=== PATIENT | female | born 1980 | race Caucasian/White ===

== ENCOUNTER 2017-09-29 20:26 | Emergency (ER) | payer OTHER ==
--- NOTE | 2017-09-29 23:02 | ED Physician Documentation ---
General Adult - HISTORIAN Historian: patient - HPI Stated Complaint: PELVIC PAIN Chief Complaint: General Adult Additional Information: pelvic pain since 1400 today Onset: hours (2) Timing: still present Severity: moderate Modifying Factors: none Context: no hx of injury Quality: pubic bone ache/pain Location: pubic ramus area Further Comments: no - ROS CONST: no problems EYES/ENT: none CVS/RESP: none GI/: other (pubic pain) MS/SKIN/LYMPH: none NEURO/PSYCH: denies: headache, fainting, dizziness, tingling, numbness, difficulty walking, difficulty with speech, anxiety, depression - PAST HX Past History: other (endometriosis) Other History: none Surgeries/Procedures: none Immunizations: referred to PCP Allergies/Adverse Reactions: Allergies Allergy/AdvReac Type Severity Reaction Status Date / Time Penicillins Allergy Verified 09/29/17 21:09 Tetanus Vaccines & Toxoid Allergy Verified 09/29/17 21:09 Home Medications: Ambulatory Orders Medication Instructions Recorded Divalproex Sodium [Depakote] 750 mg PO DAILY 09/29/17 Gabapentin [Neurontin] 300 mg PO TID 09/29/17 Venlafaxine HCl [Effexor] 37.5 mg PO QD 09/29/17 - SOCIAL HX Smoking History: cigarettes Alcohol Use: rarely Drug Use: none - FAMILY HX Family History: Yes - VITAL SIGNS Vital Signs: Vital Signs Temp Pulse Resp BP Pulse Ox 98.4 F 89 20 123/80 99 09/29/17 20:26 09/29/17 20:26 09/29/17 20:26 09/29/17 20:26 09/29/17 20:26 - REVIEWED ASSESSMENTS Nursing Assessment Reviewed: Yes Vitals Reviewed: Yes Progress - Results/Orders Results/Orders: ct abdomen/pelvis, ua ordered - Progress Progress: pt. given 60 mg Toradol im in er Critical Care Note - Critical Care Note Total Time (mins): 0 ED Results Lab/Radiology - Lab Results Lab Results: ua unremarkable - Radiology Radiology Impressions: ct abdomen and pelvis reveals herniated lumbar disc - Orders Orders: ED Orders Category Date Time Status CT ABD & PELVIS W/O CON Stat Exams 09/29/17 Taken URINALYSIS Routine Lab 09/29/17 21:18 Ordered General Adult Physical Exam - PHYSICAL EXAM GENERAL APPEARANCE: mild distress EENT: eye inspection normal, ENT inspection normal, pharynx normal, no signs of dehydration, CHELA, no nystagmus, TM's nml NECK: normal inspection, thyroid normal, supple RESPIRATORY: no resp distress, chest non-tender, breath sounds normal CVS: reg rate & rhythm, heart sounds normal, equal pulses, no murmur, no gallop , PMI nml, no JVD ABDOMEN: soft, no organomegaly, normal bowel sounds, no abdominal bruit, tenderness (suprapubic area) BACK: normal inspection, no CVA tenderness SKIN: warm/dry, normal color EXTREMITIES: non-tender, normal range of motion, no evidence of injury, no edema NEURO: oriented X3, CN's nml as tested, motor nml, sensation nml, mood/affect nml Discharge Clincal Impression: Pelvic pain, Lumbar herniated disc Referrals: Primary Doctor,No [Primary Care Provider] - 2 Days Comments: Pt. discharged in stable condition with [id number] for Skelaxin 1 pill 4x/ day. Condition: Stable Disposition: 01 HOME, SELF-CARE Decision to Admit: NO Decision Time: 23:02
[2017-09-29] MEDS: KETOROLAC TROMETHAMINE 60 MG/2 ML VIAL IM ONE (23:06)
[2017-09-30 00:04] VITALS: BP 120/80
--- NOTE | 2017-09-30 00:41 | Diagnostic Imaging Report ---
GHASSAN NGUYEN [facility] [address] [facility] [address] [place], [place]. 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 Physician: GHASSAN NGUYEN Computed tomography of the abdomen and pelvis without contrast History: Pelvic pain Findings: Transverse abdomen and pelvis sections are obtained without contrast. The lack of intravenous contrast limits the exam. The lung bases, liver, spleen, pancreas, adrenals, kidneys, great vessels, and mesenteric structures are grossly normal. The gallbladder is not identified. A small umbilical hernia contains omentum. Posterior central L4/L5 disc extrusion exhibits caudad migration and produces central canal stenosis. L5/S1 disc bulging is present. Bowel loops exhibit normal caliber and wall thickness. The colon is on the left and the small bowel on the right. Pelvic sections reveal moderate colonic stool and a normal appendix. The urinary bladder is unremarkable. Hysterectomy has been performed. Impression: 1. Congenital nonrotation of the bowel. 2. Normal appendix. 3. Posterior central L4/L5 disc extrusion with caudad migration and central canal stenosis. 4. Hysterectomy and cholecystectomy. 5. Small umbilical hernia. 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
[2017-09-30 06:51] LABS: APPEARANCE,URINE CLEAR (CLEAR); COLOR,URINE YELLOW (YELLOW); OCCULT BLOOD,URINE NEGATIVE (NEGATIVE); UROBILINOGEN URINE 0.2 Eu (0.2-1.0)
== END 2017-09-29 23:00 | disposition home or self-care (01) ==
LOC: ED 20:26
DX: R10.2 Pelvic and perineal pain (principal); M51.26 Other intervertebral disc displacement, lumbar region; N80.9 Endometriosis, unspecified
CPT/HCPCS: 74176; 81002; J1885; 96372; 99283

== ENCOUNTER 2017-10-17 08:51 | Emergency (ER) | payer OTHER ==
--- NOTE | 2017-10-17 09:18 | ED Physician Documentation ---
Lower Extremity Problem - HISTORIAN Historian: patient - HPI Chief Complaint: Lower Extremity Problem Location of Injury: L leg Onset: other (yesterday) Timing: worse Recent Injury: No Where: work Severity: moderate Quality: pain, swelling, tenderness Exacerbated By: walking Relieved By: rest Further Comments: yes (36 year old female patient presents with complaint of pain over achilles tendon. Patient denies any injury, states she worked 11 hours on her feet yesterday at [employer]. States pain began at work and has become progressively worse. 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.) - ROS CONST: no problems MS/SKIN/LYMPH: none CVS/RESP: none GI/: none EYES/ENT: none NERUO/PSYCH: denies: headache - PAST HX Past History: none PE Risk Factors: other (depression, seizures) Surgeries/Procedures: denies: none Allergies/Adverse Reactions: Allergies Allergy/AdvReac Type Severity Reaction Status Date / Time Penicillins Allergy Verified 10/17/17 09:17 Tetanus Vaccines & Toxoid Allergy Verified 10/17/17 09:17 Home Medications: Ambulatory Orders Medication Instructions Recorded Divalproex Sodium [Depakote] 750 mg PO DAILY 09/29/17 Gabapentin [Neurontin] 300 mg PO TID 09/29/17 Venlafaxine HCl [Effexor] 37.5 mg PO QD 09/29/17 Ketorolac Tromethamine [Toradol] 10 mg PO TID #15 tablet 10/17/17 - SOCIAL HX Smoking History: cigarettes - FAMILY HX Family History: denies: none - VITAL SIGNS Vital Signs: Vital Signs Temp Pulse Resp BP Pulse Ox 98.3 F 87 16 111/74 96 10/17/17 08:59 10/17/17 08:59 10/17/17 08:59 10/17/17 08:59 10/17/17 08:59 - REVIEWED ASSESSMENTS Nursing Assessment Reviewed: Yes Vitals Reviewed: Yes ED Results Lab/Radiology - Orders Orders: ED Orders Category Date Time Status Enmanuel Wrap Affected Extremity 1T Care 10/17/17 09:18 Active Ketorolac Tromethamine [Toradol] Med 10/17/17 09:18 Discontinued 60 mg IM NOW ONE Lower Extremity Problem - EXAM General Appearance: mild distress Hips: bilateral hip: non-tender, normal inspection, normal range of motion, no evidence of injury Legs: bilateral: non-tender, normal inspection, normal range of motion, no evidence of injury Knees: bilateral: non-tender, normal inspection, normal range of motion, no evidence of injury Ankle: left: pain (over ), soft tissue tenderness (proximal achilles tendon area ; tender to palpation), swelling, other (no tenderness over medial or lateral malleolus) Foot: bilateral foot: non-tender, normal inspection, normal range of motion, no evidence of injury Neuro/Tendon: normal sensation, normal motor functions, normal tendon functions , no evidence tendon injury EENT: eye inspection normal, CHELA RESPIRATORY: no resp distress CVS: reg rate & rhythm NEURO/PSYCH: oriented X3 SKIN: normal color, warm/dry, NR, INT, PAL, DR Discharge Clincal Impression: Tendonitis Achilles tendonitis Qualifiers: Laterality: left Qualified Code(s): M76.62 - Achilles tendinitis, left leg Prescriptions: Ketorolac Tromethamine [Toradol] 10 mg PO TID #15 tablet Additional Instructions: Ice Rest Elevation If you are unable to bear weight and continuing to have significant pain on day 3-4; see your PCP for re-evaluation and additional xrays. You may use Tylenol every 4hour as needed for pain. Limit your dose to less than 4 G per day. Do not take ibuprofen, aleve, naproxen or any other NSAID while you are on toradol. You may want to try massage, over the counter lidocaine patches, biofreeze, emma thurston or aspercream . Condition: Stable Disposition: 01 HOME, SELF-CARE Decision to Admit: NO Decision Time: 09:17
[2017-10-17] MEDS: KETOROLAC TROMETHAMINE 60 MG/2 ML VIAL IM ONE (09:24)
[2017-10-17 09:30] VITALS: BP 109/72
== END 2017-10-17 09:25 | disposition home or self-care (01) ==
LOC: ED 08:51
DX: M76.62 Achilles tendinitis, left leg (principal); F17.210 Nicotine dependence, cigarettes, uncomplicated
CPT/HCPCS: 96372; 99282; J1885

== ENCOUNTER 2017-10-20 16:57 | Emergency (ER) | payer OTHER ==
[2017-10-20 17:20] VITALS: BP 131/91
--- NOTE | 2017-10-20 18:02 | ED Physician Documentation ---
Ankle Injury - HISTORIAN Historian: patient, friend - HPI Stated Complaint: left ankle pain Chief Complaint: Ankle Injury Additional Information: palp and wt bearing pain area post to med mallelous-pt works at [employer] and on feet on cement all day. 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) Allergies/Adverse Reactions: Allergies Allergy/AdvReac Type Severity Reaction Status Date / Time Penicillins Allergy Verified 10/20/17 17:20 Tetanus Vaccines & Toxoid Allergy Verified 10/20/17 17:20 Home Medications: Ambulatory Orders Medication Instructions Recorded Divalproex Sodium [Depakote] 750 mg PO DAILY 09/29/17 Gabapentin [Neurontin] 300 mg PO TID 09/29/17 Venlafaxine HCl [Effexor] 37.5 mg PO QD 09/29/17 Estradiol [Estrace] 2 mg PO DAILY 10/20/17 - SOCIAL HX Smoking History: cigarettes Alcohol Use: none Drug Use: none - FAMILY HX Family History: no significant history - VITAL SIGNS Vital Signs: Vital Signs Temp Pulse Resp BP Pulse Ox 99.1 F 86 20 131/91 100 10/20/17 16:57 10/20/17 16:57 10/20/17 16:57 10/20/17 16:57 10/20/17 16:57 - REVIEWED ASSESSMENTS Nursing Assessment Reviewed: Yes Vitals Reviewed: Yes Ankle Injury Physical Exam - Physical Exam General Appearance: moderate distress Gait: limited by pain Neuro: motor nml. No: sensation nml, digital nerve deficit, decreased fine touch Vascular: No: no vascular compromise, pallor, cool skin, abnml cap refill, pulse deficit Tendons: tendon function nml, limited extension, limited flexion Leg/Knee/Thigh: uninjured above ankle, soft-tissue tenderness. No: swelling, bony tenderness, deformity, knee effusion Skin: intact, warm Head/ENT: nml inspection Neck/Back: nml inspection, non-tender Resp/CVS: chest non-tender, breath sounds nml, heart sounds nml, no resp. distress, lungs clear, reg. rate & rhythm Abdomen: non-tender Discharge Clincal Impression: tendonitis/fasciatitis, poss arteritis Referrals: Primary Doctor,No [Primary Care Provider] - 2 Days Comments: pt instructed must rest ankle and must see orthopedic surgeon for poss more significant condition Condition: Fair Disposition: 01 HOME, SELF-CARE Decision to Admit: NO Decision Time: 18:11
== END 2017-10-20 18:09 | disposition home or self-care (01) ==
LOC: ED 16:57
DX: M72.2 Plantar fascial fibromatosis (principal)
CPT/HCPCS: 99282

== ENCOUNTER 2017-11-28 19:16 | Emergency (ER) | payer SELFPAY ==
--- NOTE | 2017-11-28 19:32 | ED Physician Documentation ---
Sore Throat/Dental Pain - HISTORIAN Historian: patient - HPI Stated Complaint: tooth pain Chief Complaint: Dental Pain Onset: days ago (4) Context: Fractured Tooth Associated Symptoms: R ear pain, other (Diarrhea ). denies: fever, chills Worsened By: nothing Further Comments: yes (She states she has had an issue with this tooth for "a while" 4 days go started to notice increased pain. No drainge. No fever. She had diarrhea today - she states this is better now. She has ear pain. She has tried OTC for the diarrhea. She has not tried any OTC meds for pain. She has no dental insurance.) - ROS CONST: no problems CVS/RESP: denies: shortness of breath GI/: other (diarrhea this afternoon ). denies: nausea, vomiting MS/SKIN/LYMPH: denies: muscle aches NEURO/PSYCH: denies: headache, anxiety - PAST HX Past History: none Other History: other Immunizations: UTD Allergies/Adverse Reactions: Allergies Allergy/AdvReac Type Severity Reaction Status Date / Time Penicillins Allergy Verified 11/28/17 19:29 Tetanus Vaccines & Toxoid Allergy Verified 11/28/17 19:29 Home Medications: Ambulatory Orders Medication Instructions Recorded Divalproex Sodium [Depakote] 750 mg PO DAILY 09/29/17 Gabapentin [Neurontin] 300 mg PO TID 09/29/17 Venlafaxine HCl [Effexor] 37.5 mg PO QD 09/29/17 Estradiol [Estrace] 2 mg PO DAILY 10/20/17 - SOCIAL HX Smoking History: cigarettes Alcohol Use: none Drug Use: none - FAMILY HX Family History: No - VITAL SIGNS Vital Signs: Vital Signs Temp Pulse Resp BP Pulse Ox 99.4 F 83 16 122/95 100 11/28/17 19:17 11/28/17 19:17 11/28/17 19:17 11/28/17 19:17 11/28/17 19:17 - REVIEWED ASSESSMENTS Nursing Assessment Reviewed: Yes Vitals Reviewed: Yes Dental Pain Physical Exam - EXAM General Appearance: no acute distress, alert Head/Neck: head nml inspection, thyroid nml. No: mandibular swelling (R), mandibular swelling (L), maxillary swelling (R), maxillary swelling (L), cervical lymphadenopathy Eyes: eyes nml inspection Mouth/Throat: lips nml, gums nml, pharynx nml, no air way problems. No: gum swelling around teeth, pharyngeal erythema Ear/Nose: TM erythema (right ear, dull and buldging ear TM ) Respiratory: no resp. distress, breath sounds nml, respiratory distress CVS: reg. rate & rhythm, heart sounds nml. No: murmur Abdomen: soft, normal bowel sounds, no distension, non-tender Extremities: non-tender, nml ROM Skin: warm/dry, normal color Neuro/Psych: No: depression Discharge Clincal Impression: Otitis Qualifiers: Laterality: right Qualified Code(s): H66.91 - Otitis media, unspecified, right ear Referrals: Primary Doctor,No [Primary Care Provider] - 2 Days Comments: 1. Azithromycin (zpack) as directed 2. Medrol dose pack as directed 3. Tylenol /Ibuprofen as needed for pain 4. Warm pack 5. See PCP if no improvement in 2-4 days 6. Return to ER for increasing pain, fever or other concerning symptoms Condition: Stable Disposition: 01 HOME, SELF-CARE Decision to Admit: NO Date of Decison to Admit: 11/28/17 Decision Time: 19:38
[2017-11-28 19:55] VITALS: BP 124/88
== END 2017-11-28 19:49 | disposition home or self-care (01) ==
LOC: ED 19:16
DX: H66.91 Otitis media, unspecified, right ear (principal)
CPT/HCPCS: 99282

== ENCOUNTER 2017-12-23 15:17 | Emergency (ER) | payer SELFPAY ==
--- NOTE | 2017-12-23 15:31 | ED Physician Documentation ---
General Adult - VITAL SIGNS Vital Signs: Vital Signs Temp Pulse Resp BP Pulse Ox 99.0 F 87 14 130/87 96 12/23/17 15:21 12/23/17 15:21 12/23/17 15:21 12/23/17 15:21 12/23/17 15:21 <Robyn Agee - Last Filed: 12/23/17 23:15> - HISTORIAN Historian: patient - HPI Stated Complaint: depression Chief Complaint: General Adult Onset: days ago Timing: still present Severity: moderate Further Comments: yes (Pt is a 37 yo female who states that she is suicidal. She has a plan, which is to cut her wrists, which "is the fastest way." Pt has hx bipolar d/o, anxiety and personality d/o with cutting behavior in the past. Pt has 2 previous suicide attempts in her 20's by deliberate seroquel overdose and by deliberate heroine overdose. Pt went through rehab for drug abuse and states that she has been clean since March 2016. Pt had been on Depakote for some time, and this apparently worked well to control her mood, but she stopped it due to weight gain. Pt was then on Lamictal for some time, but this appeared to stop working. Pt started on Trileptal about 2 weeks ago with a new provider, but things have gotten worse. Pt thinks that it may be the medication change that has brought about her sx, though she does have stress at work. 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 She is given a hard time if she doesn't want to come in. Recently she called in sick, after not have called in during the 4 months of her employment, and was made to feel bad about not coming in for a legitimate reason. Pt often feels manipulated into working. Pt also has had an R earache and slight sore throat. She says that she has a bad tooth on the lower right.) - ROS CONST: no problems EYES/ENT: none CVS/RESP: none GI/: none MS/SKIN/LYMPH: none NEURO/PSYCH: depression (with suicidality) - PAST HX Past History: other (bipolar d/o with suicidality; anxiety; drug abuse, heroine , with detox approx 2 yrs ago.) - SOCIAL HX Smoking History: other (unk) Drug Use: other (hx heroine abuse) - FAMILY HX Family History: No (unk) - VITAL SIGNS Vital Signs: Vital Signs Temp Pulse Resp BP Pulse Ox 124/88 11/28/17 19:53 - REVIEWED ASSESSMENTS Nursing Assessment Reviewed: Yes Vitals Reviewed: Yes <Reji Barillas - Last Filed: 12/24/17 16:49> - PAST HX Allergies/Adverse Reactions: Allergies Allergy/AdvReac Type Severity Reaction Status Date / Time Penicillins Allergy Verified 12/23/17 23:53 Sulfa (Sulfonamide Allergy Verified 12/23/17 23:53 Antibiotics) Tetanus Vaccines and Toxoid Allergy Verified 12/23/17 23:53 [Tetanus Vaccines & Toxoid] Home Medications: Ambulatory Orders Medication Instructions Recorded Gabapentin [Neurontin] 300 mg PO TID 09/29/17 Venlafaxine HCl [Effexor] 37.5 mg PO QD 09/29/17 Estradiol [Estrace] 2 mg PO DAILY 10/20/17 Oxcarbazepine [Trileptal] 300 mg PO BID 12/23/17 Progress - Progress Progress: 1914: pt aware of shift change. She has no complaints. She is aware there is no accepting facility at this time. we will continue to work on placement> DG 2014: Sleeping quietly in bed. DG 2099: In discussion with the pt on symptoms she notes she was recently released from [facility] and she was transferred to a recovery house for approx the last 4 months. She relays several stressors : difficulty getting along with others at the recovery house, a demanding job (feeling unappreciated) with all of this she has had increasing suicidal thoughts with the plan to cut her wrists and she also reports she is hearing voices about "she is worthless and it does not matter any more" . She has had other suicidal attempts in the past. She is wanting inpatient care for prevention of suicide. 2229: working with social human services assistants on placement DG 2249: Accepting Dr Beach accepting at [facility]. DG <Robyn Agee - Last Filed: 12/23/17 23:15> - Progress Progress: Azithromycin 500 mg po in ER for c/o sore throat/ear pain. Attempts at psych placement unsuccessful. Unable to transfer to . Hosp. Pt will remain at [facility] until placement accomplished. 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 Care transferred to [facility] at 1900. <Reji Barillas - Last Filed: 12/24/17 16:49> ED Results Lab/Radiology - Lab Results Lab Results: Lab Results 12/23/17 12/23/17 15:50 15:50 WBC 5.20 K/ul K/ul (4.00-12.00) RBC 4.24 M/ul M/ul (3.90-5.20) Hgb 13.6 g/dL g/dL (12.0-16.0) Hct 41.1 % % (34.5-46.5) MCV 97.1 fl fl (80.0-100.0) MCH 32.1 pg pg (28.0-34.0) MCHC 33.1 g/dL g/dL (30.0-36.0) RDW 12.4 % % (11.3-14.3) Plt Count 250 K/mm3 K/mm3 (130-400) Neut % (Auto) 57.1 % % (39.0-79.0) Lymph % (Auto) 35.3 % % (16.0-50.0) Crosby % (Auto) 4.4 % % (0.0-11.0) Eos % (Auto) 1.9 % % (0.0-6.8) Baso % (Auto) 0.4 (0.0-1.5) Neut # (Auto) 3.0 # k/uL # k/uL (1.4-7.7) Lymph # (Auto) 1.8 # k/uL # k/uL (0.6-4.0) Crosby # (Auto) 0.2 # k/uL # k/uL (0.0-0.9) Eos # (Auto) 0.1 # k/uL # k/uL (0.0-0.6) Baso # (Auto) 0.0 # k/uL # k/uL (0.0-0.5) Reactive Lymphs % 0.9 % % (0.0-5.0) Reactive Lymphs # 0.0 # k/uL # k/uL (0.0-0.8) Sodium 142 mmol/L mmol/L (136-145) Potassium 3.6 mmol/L mmol/L (3.5-5.1) Chloride 106 mmol/L mmol/L (98-107) Carbon Dioxide 23 mmol/L mmol/L (22-30) BUN 11 mg/dL mg/dL (7-17) Creatinine 0.70 mg/dL mg/dL (0.52-1.04) Estimated Creat Clear 137 Est GFR ( Amer) > 60 (60 - ) Est GFR (Non-Af Amer) > 60 (60 - ) Glucose 92 mg/dL mg/dL (74-106) Calcium 9.3 mg/dL mg/dL (8.4-10.2) Total Bilirubin 0.6 mg/dL mg/dL (0.2-1.3) AST 33 U/L U/L (15-46) ALT 36 U/L U/L (13-69) Alkaline Phosphatase 69 U/L U/L (38-126) Total Protein 7.9 g/dL g/dL (6.3-8.2) Albumin 4.7 g/dL g/dL (3.5-5.0) - Orders Orders: ED Orders Category Date Time Status CBC/PLATELET/DIFF Routine Lab 12/23/17 15:50 Completed CMP Routine Lab 12/23/17 15:50 Completed UDS [DRUG SCREEN URINE MEDICAL ONLY] Routine Lab 12/23/17 Ordered URINALYSIS Routine Lab 12/23/17 Ordered URINE HCG Stat Lab 12/23/17 15:56 Ordered Azithromycin [Zithromax] Med 12/23/17 15:42 Discontinued 500 mg PO NOW ONE LORazepam [Ativan] Med 12/23/17 16:28 Discontinued 1 mg PO NOW ONE <Robyn Agee - Last Filed: 12/23/17 23:15> General Adult Physical Exam - PHYSICAL EXAM GENERAL APPEARANCE: no distress EENT: eye inspection normal NECK: normal inspection RESPIRATORY: no resp distress, chest non-tender, breath sounds normal CVS: reg rate & rhythm ABDOMEN: soft BACK: normal inspection NEURO: oriented X3 <Robyn Agee - Last Filed: 12/23/17 23:15> - PHYSICAL EXAM GENERAL APPEARANCE: depression EENT: eye inspection normal, CHELA, TM's nml NECK: normal inspection, supple RESPIRATORY: no resp distress, chest non-tender, breath sounds normal CVS: reg rate & rhythm, heart sounds normal ABDOMEN: soft, no organomegaly, normal bowel sounds BACK: normal inspection, no CVA tenderness SKIN: warm/dry, normal color EXTREMITIES: non-tender, normal range of motion, no evidence of injury NEURO: oriented X3, motor nml, sensation nml, depressed mood/affect <Reji Barillas - Last Filed: 12/24/17 16:49> Discharge <Robyn Agee - Last Filed: 12/23/17 23:15> Decision to Admit: NO Decision Time: 23:10 <Reji Barillas - Last Filed: 12/24/17 16:49> Clincal Impression: depression with suicidality Referrals: Primary Doctor,No [Primary Care Provider] - Condition: Stable Disposition: 65 XFER TO PSYCH HOSP/UNIT
[2017-12-23] MEDS ORDERED: AZITHROMYCIN 250 MG TABLET PO ONE (15:42)
[2017-12-23 16:02] LABS: BASOPHILS % 0.4 (0.0-1.5); EOSINOPHILS % 1.9 % (0.0-6.8); MEAN CORPUSCULAR HEMOGLOBIN 32.1 pg (28.0-34.0); MEAN CORPUSCULAR VOLUME 97.1 fl (80.0-100.0); MONOCYTES % 4.4 % (0.0-11.0)
[2017-12-23 16:12] LABS: eGFR (African) > 60; eGFR (Non-African) > 60
[2017-12-23] MEDS ORDERED: LORazepam 1 MG TABLET PO ONE ×2 (16:28→22:52)
[2017-12-23] MEDS ORDERED: NICOTINE 21mg 1 EACH PATCH.TD24 TD ONE (20:34)
[2017-12-23] MEDS ORDERED: NICOTINE 21mg 1 EACH PATCH.TD24 TD SCH (21:00)
[2017-12-23 23:51] VITALS: BP 99/62
[2017-12-24 06:59] LABS: APPEARANCE,URINE CLEAR (CLEAR); COLOR,URINE YELLOW (YELLOW); OCCULT BLOOD,URINE NEGATIVE (NEGATIVE); PH URINE 5.5 (5.0 - 8.0); UROBILINOGEN URINE 0.2 Eu (0.2-1.0)
[2017-12-24 07:01] LABS: CANNABINOIDS NEGATIVE ng/mL (< 50); METHYLENEDIOXYMETHAMPHETAMINE NEGATIVE ng/mL (<500)
== END 2017-12-23 23:40 ==
LOC: ED 15:17
DX: F33.9 Major depressive disorder, recurrent, unspecified (principal); R45.851 Suicidal ideations
CPT/HCPCS: 80053; 80377; 81002; 81025; 85025; 99284; G0481

== ENCOUNTER 2018-01-19 07:33 | Outpatient (CLI) | payer OTHER ==
[2018-01-19 08:23] LABS: BASOPHILS % 0.3 (0.0-1.5); EOSINOPHILS % 2.6 % (0.0-6.8); MEAN CORPUSCULAR HEMOGLOBIN 31.8 pg (28.0-34.0); MONOCYTES % 4.5 % (0.0-11.0); NEUTROPHILS # 3.8 # k/uL (1.4-7.7)
[2018-01-19 09:08] LABS: eGFR (African) > 60; eGFR (Non-African) > 60
== END 2018-01-19 07:35 ==
LOC: LAB 07:33
PROVIDERS: ATTEND Physician Assistant
DX: Z00.00 Encounter for general adult medical examination without abnormal findings (principal); Z83.42 Family history of familial hypercholesterolemia
CPT/HCPCS: 36415; 80053; 80061; 84443; 85025

== ENCOUNTER 2018-02-01 19:03 | Emergency (ER) | payer OTHER ==
--- NOTE | 2018-02-01 19:08 | ED Physician Documentation ---
Sore Throat/Dental Pain - HISTORIAN Historian: patient - HPI Stated Complaint: dental pain x 2 weeks Chief Complaint: Dental Pain Onset: other (14 days) Context: Fractured Tooth Associated Symptoms: moderate. denies: fever, chills Worsened By: heat, cold Further Comments: yes (She states she has had issues with her teeth "for a long time" but recently the tooth on the upper left has had increasing pain. She has contacted a dentist and her appt is next Tuesday. The tooth is broken off and the pain is increasing . She is crying in the room grabbing her mouth. She has not tried any OTC Meds (that doesnt work) she has tried some [place]. She states that helps minimally. No fever. No draingae.) - ROS CONST: no problems - PAST HX Past History: other (dental cavities ) Immunizations: UTD Allergies/Adverse Reactions: Allergies Allergy/AdvReac Type Severity Reaction Status Date / Time Penicillins Allergy Verified 02/01/18 19:20 Sulfa (Sulfonamide Allergy Verified 02/01/18 19:20 Antibiotics) Tetanus Vaccines and Toxoid Allergy Verified 02/01/18 19:20 [Tetanus Vaccines & Toxoid] Home Medications: Ambulatory Orders Medication Instructions Recorded Gabapentin 600 mg PO 5XDAY u2 01/18/18 Oxcarbazepine [Trileptal] 150 mg PO TID u2 01/18/18 Venlafaxine HCl [Effexor Xr] 75 mg PO DAILY av 01/18/18 - SOCIAL HX Smoking History: cigarettes Alcohol Use: none Drug Use: none - FAMILY HX Family History: No - VITAL SIGNS Vital Signs: Vital Signs Temp Pulse Resp BP Pulse Ox 99/62 12/23/17 23:13 - REVIEWED ASSESSMENTS Nursing Assessment Reviewed: Yes Vitals Reviewed: Yes Dental Pain Physical Exam - EXAM General Appearance: no acute distress, alert Head/Neck: head nml inspection. No: facial erythema Eyes: eyes nml inspection Mouth/Throat: lips nml, pharynx nml, no drooling, no air way problems, widespread dental decay, other (many broken and missing teeth ) Ear/Nose: nml inspection Respiratory: no resp. distress, breath sounds nml CVS: reg. rate & rhythm, heart sounds nml Abdomen: soft, normal bowel sounds Extremities: non-tender Skin: warm/dry, normal color Neuro/Psych: No: weakness, numbness, anxiety, depression Discharge Clincal Impression: Pain, dental Referrals: Benedict Price PA [Primary Care Provider] - 2 Days Additional Instructions: 1. Tramodol 50 mg Take 1 by mouth every 12 hours as needed for pain 2. Tylenol or Ibuprofen as needed for pain 3. Warm water gargles 4. Follow up with PCP in 2-4 days 5. Keep scheduled appt with dental office 6. Return to ER for any concerns Condition: Stable Disposition: 01 HOME, SELF-CARE Decision to Admit: NO Date of Decison to Admit: 02/01/18 Decision Time: 19:44
[2018-02-01 19:20] VITALS: BP 165/100
[2018-02-01] MEDS: KETOROLAC TROMETHAMINE 60 MG/2 ML VIAL IM ONE (19:25)
== END 2018-02-01 19:49 | disposition home or self-care (01) ==
LOC: ED 19:03
DX: K08.89 Other specified disorders of teeth and supporting structures (principal)
CPT/HCPCS: 96372; 99284; J1885

== ENCOUNTER 2018-03-18 13:31 | Emergency (ER) | payer OTHER ==
--- NOTE | 2018-03-18 15:10 | ED Physician Documentation ---
General Adult - HISTORIAN Historian: patient - HPI Stated Complaint: Dental Pain Chief Complaint: General Adult Onset: days ago Timing: still present Severity: moderate Further Comments: yes (Pt is a 37 yo female with dental pain. Pt had a tooth extracted 5 days ago and developed pain at the site yesterday, on the upper L.) - ROS CONST: no problems EYES/ENT: other (dental pain) CVS/RESP: none GI/: none MS/SKIN/LYMPH: none - PAST HX Past History: other (bipolar d/o) Surgeries/Procedures: hysterectomy Allergies/Adverse Reactions: Allergies Allergy/AdvReac Type Severity Reaction Status Date / Time Penicillins Allergy Verified 02/01/18 19:20 Sulfa (Sulfonamide Allergy Verified 02/01/18 19:20 Antibiotics) Tetanus Vaccines and Toxoid Allergy Verified 02/01/18 19:20 [Tetanus Vaccines & Toxoid] Home Medications: Ambulatory Orders Medication Instructions Recorded Gabapentin 600 mg PO 5XDAY u2 01/18/18 Oxcarbazepine [Trileptal] 150 mg PO TID u2 01/18/18 Venlafaxine HCl [Effexor Xr] 75 mg PO DAILY av 01/18/18 - SOCIAL HX Smoking History: cigarettes - FAMILY HX Family History: No - VITAL SIGNS Vital Signs: Vital Signs Temp Pulse Resp BP Pulse Ox 80 18 134/96 100 03/18/18 13:31 03/18/18 13:31 03/18/18 13:31 03/18/18 13:31 - REVIEWED ASSESSMENTS Nursing Assessment Reviewed: Yes Vitals Reviewed: Yes Progress - Progress Progress: Rx Clindamycin 300 mg. Take one every 8 hours for 10 days. Rx [place] (5/325). Take one or two every 4 to 6 hours as needed for moderate to severe pain. General Adult Physical Exam - PHYSICAL EXAM GENERAL APPEARANCE: moderate distress EENT: pharynx normal, other (dental tenderness upper L jaw, s/p extraction) RESPIRATORY: no resp distress, chest non-tender CVS: reg rate & rhythm, heart sounds normal BACK: normal inspection SKIN: warm/dry, normal color EXTREMITIES: non-tender, normal range of motion, no evidence of injury NEURO: oriented X3, motor nml, sensation nml Discharge Clincal Impression: Pain, dental Referrals: Christine Ramirez MD [Primary Care Provider] - 2 Days Condition: Good Disposition: 01 HOME, SELF-CARE Decision to Admit: NO Decision Time: 15:10
[2018-03-18 15:18] VITALS: BP 128/84
== END 2018-03-18 15:16 | disposition home or self-care (01) ==
LOC: ED 13:31
DX: K08.89 Other specified disorders of teeth and supporting structures (principal)
CPT/HCPCS: 99282

== ENCOUNTER 2018-04-27 17:32 | Emergency (ER) | payer SELFPAY ==
--- NOTE | 2018-04-27 17:45 | ED Physician Documentation ---
Suicidal Attempt - HISTORIAN Historian: patient - HPI Stated Complaint: suicidal Chief Complaint: Psychological Disorder Onset: other (increased over last 3 weeks ) Duration: constant Intent: suicide (via OD on meds or walking in front of a car) Severity: moderate Situational Problems: Yes (she has had depresson but recent divorce ) Further Comments: yes (She reports she has had depression and anxiety for years. She is on meds currently and she states in the beginning this regimen worked for a while although she recently got a divorce 2 months ago (she does not feel this has increased her symtpoms due to the marrige has "been over for years")She states over the last 3 weeks it has increased and she has tried to get into [facility] but they told her 2-3 months. She called the crisis line today and they directed her to the ER . She reports she would OD on one of her meds or walk out in front of a car and she does want to do that today.) - Associated Symptoms Symptoms: depressed Suicidal: specific plan Ingestion: suicide attempt (in the past) Mechanism: other (alcohol ingestion) - ROS CONST: none - PAST HX Psychiatric problems: depression, prior suicide attempt DVT/PE Risk Factors: none Immunizations: UTD - Social HX Smoking History: cigarettes Marital Status: other (recently ) Drug Use: none - Family HX Family HX: denies: mental illness - REVIEWED ASSESSMENTS Nursing Assessment Reviewed: Yes Vitals Reviewed: Yes - PAST HX Allergies/Adverse Reactions: Allergies Allergy/AdvReac Type Severity Reaction Status Date / Time Penicillins Allergy Verified 04/27/18 17:50 Sulfa (Sulfonamide Allergy Verified 04/27/18 17:50 Antibiotics) Tetanus Vaccines and Toxoid Allergy Verified 04/27/18 17:50 [Tetanus Vaccines & Toxoid] Home Medications: Ambulatory Orders Medication Instructions Recorded Gabapentin 600 mg PO 5XDAY u2 01/18/18 Olanzapine [Zyprexa] 1 tab PO DAILY 04/27/18 Venlafaxine HCl [Effexor Xr] 1 tab PO DAILY 04/27/18 Oxcarbazepine [Trileptal] 300 mg PO BID 04/28/18 - VITAL SIGNS Vital Signs: Vital Signs Temp Pulse Resp BP Pulse Ox 98.3 F 60 14 112/74 99 04/28/18 13:12 04/29/18 19:35 04/29/18 19:35 04/29/18 19:35 04/28/18 13:12 Progress - Progress Progress: 1900: attempting to place in facilities . PT is resting quietly DG 2330: sleeping - still awaiting placement. DG 0130: sleeping - still awaiting placement DG 0530: resting quietly - still awaiting placement. Will await social insurance analyst to help with this placement DG 2100, she has requested and received ativan twice so far this day. Drining coffee. Accepted at facility in [place] with the stipulation that she have a ride home on discharge; she does not. peaceful and drinking coffee most of the day. 0720: sleeping quietly in room. DG 0820: Does not want her breakfast. No complaints DG 1100: She is up in room doing ADL's. NO complaints. DG 1345: She is stating she is no longer concerned with harming herself and would like to go home - she states she asked yesterday but is certain today is feeling better. She does feel depressed although she has an appt with a counselor Tuesday . She lives less than 2 blocks from hospital and she will return DG (ELOY COLE) 1900: attempting to place in facilities . PT is resting quietly DG 2330: sleeping - still awaiting placement. DG 0130: sleeping - still awaiting placement DG 0530: resting quietly - still awaiting placement. Will await social insurance analyst to help with this placement DG 2100, she has requested and received ativan twice so far this day. Drining coffee. Accepted at facility in [place] with the stipulation that she have a ride home on discharge; she does not. peaceful and drinking coffee most of the day. 0720: sleeping quietly in room. DG 0820: Does not want her breakfast. No complaints DG 1100: She is up in room doing ADL's. NO complaints. DG 1345: She is stating she is no longer concerned with harming herself and would like to go home - she states she asked yesterday but is certain today is feeling better. She does feel depressed although she has an appt with a counselor Tuesday . She lives less than 2 blocks from hospital and she will return DG (Robyn Agee) - Lab Results Lab Results: Lab Results 04/27/18 04/27/18 04/27/18 18:35 18:35 18:20 WBC RBC Hgb Hct MCV MCH MCHC RDW Plt Count Neut % (Auto) Lymph % (Auto) [place] % (Auto) Eos % (Auto) Baso % (Auto) Neut # (Auto) Lymph # (Auto) [place] # (Auto) Eos # (Auto) Baso # (Auto) Reactive Lymphs % Reactive Lymphs # Sodium Potassium Chloride Carbon Dioxide BUN Creatinine Estimated Creat Clear Est GFR ( Amer) Est GFR (Non-Af Amer) Glucose Calcium Total Bilirubin AST ALT Alkaline Phosphatase Total Protein Albumin TSH 1.550 uIU/mL uIU/mL (0.270-4.200) Free T4 Index 0.75 ng/dL L ng/dL (0.93-1.70) Free T3 Index 2.55 pg/mL pg/mL (2.00-4.40) Serum HCG, Qual Urine Color Yellow (YELLOW) Urine Appearance Clear (CLEAR) Urine pH 5.5 (5.0 - 8.0) Ur Specific [place] 1.025 (1.010-1.030) Urine Protein Negative mg/dL mg/dL (NEGATIVE) Urine Ketones Negative mg/dL mg/dL (NEGATIVE) Urine Occult Blood Negative (NEGATIVE) Urine Nitrite Negative (NEGATIVE) Urine Bilirubin Negative (NEGATIVE) Urine Urobilinogen 0.2 Eu Eu (0.2-1.0) Ur Leukocyte Esterase Negative (NEGATIVE) Urine Glucose Negative mg/dL mg/dL (NEGATIVE) Opiates Screen Negative ng/mL ng/mL (<300) Oxycodone Screen Negative ng/mL ng/mL (<100) Methadone Screen Negative ng/mL ng/mL (<200) Ur Barbiturates Screen Negative ng.mL ng.mL (<200) Tricyclic Antidepress Negative ng/mL ng/mL (<300) Phencyclidine Screen Negative ng/mL ng/mL (< 25) Amphetamines Screen Negative ng/mL ng/mL (<500) U Methamphetamines Scrn Negative ng/mL ng/mL (<500) MDMA Negative ng/mL ng/mL (<500) Benzodiazepines Screen Negative ng/mL ng/mL (<150) Urine Cocaine Screen Negative ng/mL ng/mL (<150) U Cannabinoids Screen Negative ng/mL ng/mL (< 50) Ethyl Alcohol 04/27/18 04/27/18 04/27/18 18:20 18:20 18:20 WBC 5.30 K/ul K/ul (4.00-12.00) RBC 4.38 M/ul M/ul (3.90-5.20) Hgb 13.6 g/dL g/dL (12.0-16.0) Hct 40.5 % % (34.5-46.5) MCV 92.5 fl fl (80.0-100.0) MCH 31.1 pg pg (28.0-34.0) MCHC 33.7 g/dL g/dL (30.0-36.0) RDW 12.7 % % (11.3-14.3) Plt Count 251 K/mm3 K/mm3 (130-400) Neut % (Auto) 51.7 % % (39.0-79.0) Lymph % (Auto) 41.1 % % (16.0-50.0) [place] % (Auto) 3.4 % % (0.0-11.0) Eos % (Auto) 1.7 % % (0.0-6.8) Baso % (Auto) 0.6 (0.0-1.5) Neut # (Auto) 2.7 # k/uL # k/uL (1.4-7.7) Lymph # (Auto) 2.2 # k/uL # k/uL (0.6-4.0) [place] # (Auto) 0.2 # k/uL # k/uL (0.0-0.9) Eos # (Auto) 0.1 # k/uL # k/uL (0.0-0.6) Baso # (Auto) 0.0 # k/uL # k/uL (0.0-0.5) Reactive Lymphs % 1.4 % % (0.0-5.0) Reactive Lymphs # 0.1 # k/uL # k/uL (0.0-0.8) Sodium 137 mmol/L mmol/L (136-145) Potassium 3.4 mmol/L L mmol/L (3.5-5.1) Chloride 101 mmol/L mmol/L (98-107) Carbon Dioxide 24 mmol/L mmol/L (22-30) BUN 10 mg/dL mg/dL (7-17) Creatinine 0.70 mg/dL mg/dL (0.52-1.04) Estimated Creat Clear 142 Est GFR ( Amer) > 60 (60 - ) Est GFR (Non-Af Amer) > 60 (60 - ) Glucose 111 mg/dL H mg/dL (74-106) Calcium 8.8 mg/dL mg/dL (8.4-10.2) Total Bilirubin < 0.1 mg/dL L mg/dL (0.2-1.3) AST 31 U/L U/L (15-46) ALT 51 U/L U/L (13-69) Alkaline Phosphatase 72 U/L U/L (38-126) Total Protein 7.5 g/dL g/dL (6.3-8.2) Albumin 4.3 g/dL g/dL (3.5-5.0) TSH Free T4 Index Free T3 Index Serum HCG, Qual Negative (NEGATIVE) Urine Color Urine Appearance Urine pH Ur Specific [place] Urine Protein Urine Ketones Urine Occult Blood Urine Nitrite Urine Bilirubin Urine Urobilinogen Ur Leukocyte Esterase Urine Glucose Opiates Screen Oxycodone Screen Methadone Screen Ur Barbiturates Screen Tricyclic Antidepress Phencyclidine Screen Amphetamines Screen U Methamphetamines Scrn MDMA Benzodiazepines Screen Urine Cocaine Screen U Cannabinoids Screen Ethyl Alcohol < 10.0 mg/dL mg/dL (0.0-10.0) - Orders Orders: ED Orders Category Date Time Status Place IV Lock 1T Care 04/27/18 17:47 Active Slabber Consult [CONS] Routine Cons 04/28/18 Ordered ALCOHOL MEDICAL USE ONLY Routine Lab 04/27/18 18:20 Completed CBC/PLATELET/DIFF Routine Lab 04/27/18 18:20 Completed CMP Routine Lab 04/27/18 18:20 Completed DRUG SCREEN URINE MEDICAL ONLY Routine Lab 04/27/18 18:35 Completed SERUM HCG Routine Lab 04/27/18 18:20 Completed THYROID PANEL (TSH, FT3, FT4) Stat Lab 04/27/18 18:20 Completed UA MACRO DIP ONLY Routine Lab 04/27/18 18:35 Completed Gabapentin [Neurontin] Med 04/29/18 09:57 Discontinued 600 mg .ROUTE .STK-MED ONE Gabapentin [Neurontin] Med 04/29/18 10:00 Discontinued 600 mg PO D Gabapentin [Neurontin] Med 04/28/18 18:26 Discontinued 600 mg PO NOW ONE Gabapentin [Neurontin] Med 04/29/18 14:00 Discontinued 600 mg PO NOW ONE LORazepam [Ativan] Med 04/27/18 17:55 Discontinued 1 mg PO NOW ONE LORazepam [Ativan] Med 04/28/18 10:42 Discontinued 1 mg PO NOW ONE LORazepam [Ativan] Med 04/28/18 13:09 Discontinued 1 mg PO NOW ONE LORazepam [Ativan] Med 04/28/18 22:03 Discontinued 1 mg PO NOW ONE LORazepam [Ativan] Med 04/29/18 12:49 Discontinued 1 mg PO NOW ONE OLANZapine [Zyprexa] Med 04/28/18 18:26 Discontinued 5 mg PO HS ONE Oxcarbazepine Med 04/29/18 10:14 Discontinued 300 mg PO NOW ONE Oxcarbazepine Med 04/28/18 18:26 Discontinued 300 mg PO TID ONE [facility] 04/28/18 19:08 Discontinued 1 each [facility] .STK-MED ONE [facility] 04/29/18 10:13 Discontinued 1 each MC .STK-MED ONE Venlafaxine HCl [Effexor Xr] Med 04/28/18 19:22 Discontinued 150 mg PO DAILY ONE Venlafaxine HCl [Effexor] Med 04/28/18 18:26 Discontinued 150 mg PO DAILY ONE Venlafaxine HCl [Effexor] Med 04/29/18 09:38 Discontinued 150 mg PO DAILY ONE EKG WITH COMPARISON Stat Ther 04/27/18 Completed Suicide Physical Exam - Physical Exam General Appearance: alert ENT: nml ENT inspection Mental Status: tearful, depressed affect / mood Suicide Attempts: still contemplating Orientation: nml x3 Cranial Nerves: CN's intact as tested Sensory, Motor: nml motor response Neck/Back: normal inspection Respiratory: no resp distress, chest non-tender, breath sounds normal CVS: reg rate & rhythm, heart sounds normal, equal pulses, no murmur Abdomen: non-tender, nml bowel sounds Skin: warm/dry, normal color Extremities: non-tender Discharge Decision to Admit: NO Date of Decison to Admit: 04/29/18 Decision Time: 13:48 Clincal Impression: Depression Qualifiers: Depression Type: major depressive disorder Major depression recurrence: recurrent Active/Remission status: currently active Major depression episode severity: moderate Qualified Code(s): F33.1 - Major depressive disorder, recurrent, moderate Referrals: Christine Ramirez MD [Primary Care Provider] - 2 Days Comments: 1. Follow up with PCP ANNEMARIE 2. RETURN TO ER FOR any feelings of suicide - or call 911 (ELOY COLE) 1. Follow up with PCP ANNEMARIE 2. RETURN TO ER FOR any feelings of suicide - or call 911 (Robyn Agee) Condition: Stable Disposition: 01 HOME, SELF-CARE
[2018-04-27] MEDS ORDERED: LORazepam 1 MG TABLET PO ONE (17:55)
[2018-04-27 18:37] LABS: BASOPHILS % 0.6 (0.0-1.5); EOSINOPHILS % 1.7 % (0.0-6.8); MEAN CORPUSCULAR HEMOGLOBIN 31.1 pg (28.0-34.0); MEAN CORPUSCULAR VOLUME 92.5 fl (80.0-100.0); MONOCYTES % 3.4 % (0.0-11.0); NEUTROPHILS # 2.7 # k/uL (1.4-7.7)
[2018-04-27 18:48] LABS: eGFR (Non-African) > 60
[2018-04-28 06:27] LABS: APPEARANCE,URINE CLEAR (CLEAR); COLOR,URINE YELLOW (YELLOW)
[2018-04-28 06:28] LABS: CANNABINOIDS NEGATIVE ng/mL (< 50); METHYLENEDIOXYMETHAMPHETAMINE NEGATIVE ng/mL (<500); OCCULT BLOOD,URINE NEGATIVE (NEGATIVE); PH URINE 5.5 (5.0 - 8.0); UROBILINOGEN URINE 0.2 Eu (0.2-1.0)
[2018-04-28] MEDS ORDERED: LORazepam 1 MG TABLET PO ONE ×3 (10:42→22:03)
[2018-04-28] MEDS ORDERED: VENLAFAXINE HCL 37.5 MG TAB PO ONE (18:26)
[2018-04-28] MEDS ORDERED: GABAPENTIN 100 MG CAPSULE PO ONE (18:26)
[2018-04-28] MEDS ORDERED: OLANZapine 5 MG TABLET PO ONE (18:26)
[2018-04-28] MEDS ORDERED: OXCARBAZEPINE 300 MG TABLET PO ONE (18:26)
[2018-04-28] MEDS ORDERED: PHARMACY KEY 1 EACH EACH MC ONE (19:08)
[2018-04-28] MEDS ORDERED: VENLAFAXINE HCL 37.5 MG CAP.ER.24H PO ONE (19:22)
[2018-04-29] MEDS ORDERED: VENLAFAXINE HCL 37.5 MG TAB PO ONE (09:38)
[2018-04-29] MEDS ORDERED: GABAPENTIN 300 MG CAPSULE ONE (09:57)
[2018-04-29] MEDS ORDERED: GABAPENTIN 300 MG CAPSULE PO SCH (10:00)
[2018-04-29] MEDS ORDERED: PHARMACY KEY 1 EACH EACH MC ONE (10:13)
[2018-04-29] MEDS ORDERED: OXCARBAZEPINE 300 MG TABLET PO ONE (10:14)
[2018-04-29] MEDS ORDERED: LORazepam 1 MG TABLET PO ONE (12:49)
[2018-04-29] MEDS ORDERED: GABAPENTIN 300 MG CAPSULE PO ONE (14:00)
[2018-04-29 19:37] VITALS: BP 112/74
== END 2018-04-29 14:10 | disposition home or self-care (01) ==
LOC: ED 17:32
DX: F33.1 Major depressive disorder, recurrent, moderate (principal)
CPT/HCPCS: 80053; 80320; 80377; 81002; 84439; 84443; 84481; 84703; 85025; 99284; G0480; G0481; S1016

== ENCOUNTER 2018-06-07 16:33 | Outpatient (CLI) | payer OTHER | END 2018-06-07 16:34 | LOC: LABRHC 16:33 | PROVIDERS: ATTEND Family Medicine | DX: R30.0 Dysuria (principal) | CPT/HCPCS: 87086; 87186 ==

== ENCOUNTER 2018-07-26 11:16 | Outpatient (CLI) | payer OTHER ==
[2018-07-26 11:54] LABS: MEAN CORPUSCULAR HEMOGLOBIN 31.4 pg (28.0-34.0)
[2018-07-26 12:41] LABS: eGFR (Non-African) > 60
== END 2018-07-26 11:18 ==
LOC: LAB 11:16
PROVIDERS: ATTEND Family Medicine
DX: R42 Dizziness and giddiness (principal)
CPT/HCPCS: 36415; 80053; 85027

== ENCOUNTER 2018-08-12 13:11 | Emergency (ER) | payer OTHER ==
--- NOTE | 2018-08-12 14:05 | ED Physician Documentation ---
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 pt presents to the ED via POV requesting med refills for lexapro 10 mg daily for depression and Gabapentin 600 mg five times a day. pt denies SI/HI or any symptoms or complaints. She is on a waiting list for a [place] appt and is a clinic pt here and not able to get in. pt denies current chest pain, dyspnea, syncope/near syncope, headache, dizziness, visual disturbances, n/v/d, fever/chills, rash, sick contacts, dysuria, trauma. melena or hematochezia, bleeding or easy bruising, change in bowel or bladder function, no recent weight loss/gain, anxiety or depression. ROS Negative unless otherwise specified. - ROS CONST: no problems - PAST HX Past History: none Allergies/Adverse Reactions: Allergies Allergy/AdvReac Type Severity Reaction Status Date / Time Penicillins Allergy Verified 08/12/18 13:36 Sulfa (Sulfonamide Allergy Verified 08/12/18 13:36 Antibiotics) Tetanus Vaccines and Toxoid Allergy Verified 08/12/18 13:36 [Tetanus Vaccines & Toxoid] Home Medications: Ambulatory Orders Medication Instructions Recorded Gabapentin 600 mg PO 5XDAY u2 01/18/18 Olanzapine [Zyprexa] 5 mg PO DAILY 04/27/18 Oxcarbazepine [Trileptal] 300 mg PO BID 04/28/18 Escitalopram Oxalate [Lexapro] 10 mg PO QD 08/12/18 - SOCIAL HX Smoking History: non-smoker, other (E-cig) - FAMILY HX Family History: No - VITAL SIGNS Vital Signs: Vital Signs Temp Pulse Resp BP Pulse Ox 98.2 F 69 17 125/92 99 08/12/18 13:11 08/12/18 13:11 08/12/18 13:11 08/12/18 13:11 08/12/18 13:11 - REVIEWED ASSESSMENTS Nursing Assessment Reviewed: Yes Vitals Reviewed: Yes General Adult Physical Exam - PHYSICAL EXAM GENERAL APPEARANCE: no distress EENT: eye inspection normal NECK: normal inspection, thyroid normal RESPIRATORY: no resp distress, chest non-tender, breath sounds normal CVS: reg rate & rhythm, heart sounds normal, equal pulses, no murmur, no gallop, PMI nml, no JVD, no friction rub, 24 ABDOMEN: soft, no organomegaly, normal bowel sounds, no abdominal bruit, no distension BACK: normal inspection, no CVA tenderness SKIN: normal color, warm/dry, NR, INT, PAL, DR EXTREMITIES: non-tender, normal range of motion, no evidence of injury, no edema, J, STEAM GIGGER NEURO: oriented X3, motor nml, sensation nml, mood/affect nml Discharge Clincal Impression: Medication refill, Myalgia Depression Qualifiers: Depression Type: unspecified Qualified Code(s): F32.9 - Major depressive disorder, single episode, unspecified Referrals: Christine Ramirez MD [Primary Care Provider] - 2 Days Additional Instructions: Follow up with dr ramirez or mental health for further refills. return if worse. seek medical care immediately if difficult to wake, difficulty breathing, feeling faint or fainting, increased rash, chest pain, shortness of breath, or fever not controlled by tylenol/motrin or any concern. follow up with primary care next week or before if not improving as expected. PLEASE UNDERSTAND THAT THIS IS AN EMERGENCY EVALUATION FOR YOUR COMPLAINT AND BY NATURE IS LIMITED AND NOT A SUBSTITUTE FOR ONGOING MEDICAL CARE. EVEN THOUGH TEST RESULTS AND TREATMENT PLAN WERE EXPLAINED THERE MAY BE A NEED FOR ADDITIONAL TESTING TO FULLY DETERMINE THE EXTENT OF YOUR ILLNESS/INJURY/OR CONCERN SO YOU SHOULD CONTACT AND OR ESTABLISH WITH A PRIMARY CARE PROVIDER (OR REFERRAL DOCTOR IF APPLICABLE) FOR AN APPOINTMENT SOON POSSIBLE Comments: Refilled lexapro for one month Approved gabapentin for 2 weeks at an appropriate dose. Condition: Good Disposition: 01 HOME, SELF-CARE Decision to Admit: NO Date of Decison to Admit: 08/12/18 Decision Time: 14:06
[2018-08-12 14:21] VITALS: BP 112/74
== END 2018-08-12 14:17 | disposition home or self-care (01) ==
LOC: ED 13:11
DX: Z76.0 Encounter for issue of repeat prescription (principal); M79.10 Myalgia, unspecified site; F32.9 Major depressive disorder, single episode, unspecified
CPT/HCPCS: 99281; 99282

== ENCOUNTER 2018-10-12 06:18 | Emergency (ER) | payer OTHER ==
[2018-10-12 06:42] VITALS: BP 127/70
--- NOTE | 2018-10-12 06:56 | ED Physician Documentation ---
Fall - HISTORIAN Historian: patient - HPI Stated Complaint: "I fell up the stairs at work" Chief Complaint: Fall Where: work - VITAL SIGNS Vital Signs: Vital Signs Temp Pulse Resp BP Pulse Ox 98.5 F 75 16 127/70 98 10/12/18 06:20 10/12/18 06:20 10/12/18 06:20 10/12/18 06:20 10/12/18 06:20 <WINTER DANG - Last Filed: 10/12/18 06:50> - HPI Additional Information: Patient presents to ED after falling up the stairs at work and injured her left knee. Patient states she was running when she encountered the stairs, tripped and landed on her left knee. She admits to previous history of right knee injury with chronic intermittent swelling. She rates her pain 3/10 dull ache. Context: tripped r: mild Associated Symptoms:: no loss of consciousness Location of Pain/Injury: lower extremity Injury to Left Extremity: knee Further Comments: no - ROS CONST: no problems NEURO: denies: dizziness [place]/SKIN/LYMPH: denies: neck pain, back pain, leg swelling EYES/ENT: none CVS/RESP: none GI/: denies: nausea, vomiting - PAST HX Past History: none - SOCIAL HX Smoking History: non-smoker Alcohol Use: none Drug Use: none - FAMILY HX Family History: none - VITAL SIGNS Vital Signs: Vital Signs Temp Pulse Resp BP Pulse Ox 98.5 F 75 16 127/70 98 10/12/18 06:20 10/12/18 06:20 10/12/18 06:20 10/12/18 06:20 10/12/18 06:20 - REVIEWED ASSESSMENTS Nursing Assessment Reviewed: Yes Vitals Reviewed: Yes <Mae Berrios - Last Filed: 10/12/18 07:14> - PAST HX Allergies/Adverse Reactions: Allergies Allergy/AdvReac Type Severity Reaction Status Date / Time Penicillins Allergy Verified 10/12/18 06:41 Sulfa (Sulfonamide Allergy Verified 10/12/18 06:41 Antibiotics) Tetanus Vaccines and Toxoid Allergy Verified 10/12/18 06:41 [Tetanus Vaccines & Toxoid] Home Medications: Ambulatory Orders Medication Instructions Recorded Oxcarbazepine [Trileptal] 300 mg PO BID 04/28/18 Progress - Results/Orders Results/Orders: Report Submission Date: Oct 12, 2018 6:54:44 AM DRUG COUNSELOR Patient Study Name: RICKEY SOLIS Date: Oct 12, 2018 6:38:06 AM DRUG COUNSELOR Modality Type: DX Gender: F Description: KNEE 3 VIEWS : 78 Institution: [facility] Physician: WINTER DANG (SILVERWARE ETCHER) - ER HISTORY: 37-year-old female with left knee pain after fall COMPARISON: None available TECHNIQUE: 3 views of the left knee were performed. FINDINGS: No fracture or significant joint space narrowing about the left knee. No significant lateral patellar tilt or subluxation on the sunrise view. There may be a small joint effusion. There is mild soft tissue prominence anterior to the patella. IMPRESSION: 1. No acute fracture of the left knee. 2. Mild soft tissue prominence anterior to the patella may be due to prepatellar bursitis or contusion. Electronically signed on Oct 12, 2018 6:54:44 AM DRUG COUNSELOR by: Lawrence Rogers <Mae Berrios - Last Filed: 10/12/18 07:14> ED Results Lab/Radiology - Orders Orders: ED Orders Category Date Time Status KNEE 3 VIEWS [RAD] Stat Exams 10/12/18 Ordered <WINTER DANG - Last Filed: 10/12/18 06:50> - Orders Orders: ED Orders Category Date Time Status KNEE 3 VIEWS [RAD] Stat Exams 10/12/18 Completed <Mae Berrios - Last Filed: 10/12/18 07:14> Fall Physical Exam - Physical Exam General Appearance: alert Head: non-tender, no obvious injury Neck: non-tender, painless ROM Eye: [place] ENT: nml external inspection Resp/CVS: chest non-tender Abdomen: soft Neuro: oriented x3, sensation nml Skin: color nml, no rash Back: normal inspection Extremities: atraumatic, pelvis stable, other (left knee with some swelling distal to patella) - [place] Coma Score Eyes Open: Spontaneous Speech: Oriented Motor: Obeys Commands <Mae Berrios - Last Filed: 10/12/18 07:14> Discharge <WINTER DANG - Last Filed: 10/12/18 06:50> Decision to Admit: NO Date of Decison to Admit: 10/12/18 Decision Time: 07:14 <Mae Berrios - Last Filed: 10/12/18 07:14> Clincal Impression: Injury of left knee Qualifiers: Encounter type: initial encounter Qualified Code(s): S89.92XA - Unspecified injury of left lower leg, initial encounter Referrals: Temo aCrr MD [Primary Care Provider] - 2 Days Additional Instructions: 1. Tylenol and/or Ibuprofen as needed for pain 2. Apply ice as needed for comfort 3. Follow up with PCP within 1 week 4. Return to ER for new or worsening symptoms Condition: Stable Disposition: 01 HOME, SELF-CARE
--- NOTE | 2018-10-12 06:58 | Diagnostic Imaging Report ---
WINTER DANG ([employer]) - ER [facility] [address] [facility].[address] [address] Report Submission Date: Oct 12, 2018 6:54:44 AM [employer]IL [employer]ER Patient Study Name: RICKEY SOLIS Date: Oct 12, 2018 6:38:06 AM [employer] WE[employer]ER Modality Type: DX Gender: F Description: KNEE 3 VIEWS : 78 Institution: [facility] Physician: WINTER DANG) - ER HISTORY: 37-year-old female with left knee pain after fall COMPARISON: None available TECHNIQUE: 3 views of the left knee were performed. FINDINGS: No fracture or significant joint space narrowing about the left knee. No significant lateral patellar tilt or subluxation on the sunrise view. There may be a small joint effusion. There is mild soft tissue prominence anterior to the patella. IMPRESSION: 1. No acute fracture of the left knee. 2. Mild soft tissue prominence anterior to the patella may be due to prepatellar bursitis or contusion. Electronically signed on Oct 12, 2018 6:54:44 AM [employer]IL [employer]ER by: Lawrence STAUFFER
== END 2018-10-12 07:20 | disposition home or self-care (01) ==
LOC: ED 06:18
DX: S89.92XA Unspecified injury of left lower leg, initial encounter (principal); W10.9XXA Fall (on) (from) unspecified stairs and steps, initial encounter; Y93.02 Activity, running; Y92.89 Other specified places as the place of occurrence of the external cause; Y99.0 Civilian activity done for income or pay
CPT/HCPCS: 73562; 99282; 99283

== ENCOUNTER 2018-10-30 04:23 | Emergency (ER) | payer OTHER ==
[2018-10-30] MEDS ORDERED: ASPIRIN 81 MG CHEW TAB PO ONE (04:26)
[2018-10-30] MEDS ORDERED: IPRATROPIUM/ALBUTEROL SULFATE 3 ML AMPUL.NEB NEB ONE (04:29)
--- NOTE | 2018-10-30 04:35 | ED Physician Documentation ---
Chest Pain - HISTORIAN Historian: patient - HPI Stated Complaint: chest pain Chief Complaint: Chest Pain Onset: hours (2) Timing: sudden onset Duration: constant Last known Well Date: 10/30/18 Last Known Well Time: 03:00 Context: activity (work ) Severity: mild Quality: pressure, sharp Chest Pain Radiation: no radiation Chest Pain Signs/Symptoms: denies: nausea, vomiting, diaphoresis, cool extremities, dizziness, dyspnea, tachypnea, tachycardia, hypotension, palpitations, weakness Worsened By: deep breaths, other (palpation) Relieved By: rest Further Comments: yes (mid chest pain with deep breath or palpation. She states that she has no injury to report. She was at work. She has not taken any OTC meds. She started with a Ecig and she thinks it started to hurt worse after this. She denies any associated symptoms . She has no radiating pain. No history of any heart issues. She takes meds for depression at home) - ROS CONST: none - PAST HX [place] risk factors: no pertinent history DVT/PE Risk Factors: none TAD/AAA risk factors: none Neuro deficit: none GI disease: none Lung disease: none Surgeries/Procedures: none Immunizations: UTD Allergies/Adverse Reactions: Allergies Allergy/AdvReac Type Severity Reaction Status Date / Time Penicillins Allergy Verified 10/30/18 05:49 Sulfa (Sulfonamide Allergy Verified 10/30/18 05:49 Antibiotics) Tetanus Vaccines and Toxoid Allergy Verified 10/30/18 05:49 [Tetanus Vaccines & Toxoid] Home Medications: Ambulatory Orders Medication Instructions Recorded Oxcarbazepine [Trileptal] 300 mg PO BID 04/28/18 - SOCIAL HX Smoking History: cigarettes Alcohol Use: none Drug Use: none - FAMILY HX Family HX: none - VITAL SIGNS Vital Signs: Vital Signs Temp Pulse Resp BP Pulse Ox 127/70 10/12/18 07:20 - REVIEWED ASSESSMENTS Nursing Assessment Reviewed: Yes Vitals Reviewed: Yes Progress - Progress Progress: 0514: Post neb she reports she has decreased pain DG 0555: Discussed results and plan. She is agreeable. Reports pain is improved DG ED Results Lab/Radiology - Radiology Radiology Impressions: Portable chest History: Chest pain and shortness of breath Portable chest dated October 30, 2018 demonstrates a normal cardiomediastinal silhouette. Pulmonary vascularity is normal. Lungs are clear. Impression: No active disease. Electronically signed on Oct 30, 2018 4:57:09 AM CDT by: Richelle Kuo - Orders Orders: ED Orders Category Date Time Status Continuous EKG monitoring Q30M Care 10/30/18 04:26 Ordered Continuous Pulse Oximetry Q30M Care 10/30/18 04:[address] IV Lock 1T Care 10/30/18 04:26 Ordered CHEST 1VIEW [RAD] Stat Exams 10/30/18 Ordered CBC/PLATELET/DIFF Routine Lab 10/30/18 04:26 Ordered CMP Routine Lab 10/30/18 04:26 Ordered TROPONIN I (cTnI) Stat Lab 10/30/18 04:26 Ordered Aspirin [Mariano] Med 10/30/18 04:26 Once 324 mg PO NOW ONE Ipratropium/Albuterol Sulfate [Duoneb] Med 10/30/18 04:29 Once 3 ml NEB NOW ONE Oxygen Daily Oxygen 10/30/18 04:30 Ordered EKG WITH COMPARISON Stat Ther 10/30/18 04:26 Ordered Chest Pain Physical Exam - EXAM General Appearance: no acute distress, alert EENT: eye inspection normal, no signs of dehydration Neck: nml inspection Respiratory: no resp. distress, chest non-tender, nml breath sounds CVS: reg. rate & rhythm, no murmur, other (pain with palpation mid chest ) Abdomen: soft, normal bowel sounds, no distension Skin: warm/dry Extremities: non-tender Neuro: oriented X3 Discharge Clincal Impression: UTI (urinary tract infection) Qualifiers: Urinary tract infection type: site unspecified Hematuria presence: without hematuria Qualified Code(s): N39.0 - Urinary tract infection, site not specified Chest pain Qualifiers: Chest pain type: unspecified Qualified Code(s): R07.9 - Chest pain, unspecified Referrals: Temo Carr MD [Primary Care Provider] - 2 Days Comments: 1. azithromycin (zpack) as directed 2. Medrol dose pack - as directed (start 10.31.18) 3. ProAir 90mcg - 2 puffs every 4 hours as needed for cough 4. Ibuprofen 800 mg take 1 by mouth every 12 hours as needed for pain 5. Follow up with PCP in 2-4 days 6. Return to ER for any concerns Condition: Stable Disposition: 01 HOME, SELF-CARE Decision to Admit: NO Date of Decison to Admit: 10/30/18 Decision Time: 06:03
[2018-10-30 05:27] LABS: BASOPHILS % 0.4 (0.0-1.5); EOSINOPHILS % 2.1 % (0.0-6.8); MEAN CORPUSCULAR HEMOGLOBIN 30.7 pg (28.0-34.0); NEUTROPHILS # 2.1 # k/uL (1.4-7.7)
[2018-10-30 05:33] LABS: eGFR (Non-African) > 60
[2018-10-30] MEDS ORDERED: predniSONE 20 MG TABLET PO ONE (05:41)
[2018-10-30 06:31] VITALS: BP 120/74
--- NOTE | 2018-10-30 07:02 | Diagnostic Imaging Report ---
CARMEN ABEBE [facility] [address] [facility] [address] [place], [place]. [address] Report Submission Date: Oct 30, 2018 4:57:09 AM CDT Patient Study Name: RICKEY SOLIS Date: Oct 30, 2018 4:42:09 AM CDT Modality Type: DX Gender: F Description: CHEST 1VIEW : 78 Institution: [facility] Physician: CARMEN ABEBE Portable chest History: Chest pain and shortness of breath Portable chest dated October 30, 2018 demonstrates a normal cardiomediastinal silhouette. Pulmonary vascularity is normal. Lungs are clear. Impression: No active disease. Electronically signed on Oct 30, 2018 4:57:09 AM CDT by: Richelle STAUFFER
[2018-10-30 08:11] LABS: APPEARANCE,URINE CLEAR (CLEAR); COLOR,URINE YELLOW (YELLOW); OCCULT BLOOD,URINE NEGATIVE (NEGATIVE); UROBILINOGEN URINE 0.2 Eu (0.2-1.0)
== END 2018-10-30 06:11 | disposition home or self-care (01) ==
LOC: ED 04:23
DX: R07.9 Chest pain, unspecified (principal); N39.0 Urinary tract infection, site not specified
CPT/HCPCS: 36415; 71045; 80053; 81002; 84484; 85025; 94640; 99283; 99284; S1016

== ENCOUNTER 2019-02-26 14:50 | Emergency (ER) | payer SELFPAY ==
[2019-02-26 15:31] LABS: APPEARANCE,URINE CLEAR (CLEAR); COLOR,URINE ORANGE (YELLOW); OCCULT BLOOD,URINE 1+ (NEGATIVE); PH URINE 5.5 (5.0 - 8.0)
[2019-02-26 15:32] LABS: UROBILINOGEN URINE 0.2 Eu (0.2-1.0)
--- NOTE | 2019-02-26 16:59 | ED Physician Documentation ---
General Adult - HISTORIAN Historian: patient - HPI Stated Complaint: burning with urination Chief Complaint: Female Urogenital Problems Onset: days ago (3) Timing: still present Severity: mild Further Comments: yes (She states she has had burning with urination x 3 days. She has no insurance so she had no money she needed to be seen in ER per her statement. She has no fever. She is taking OTC meds for symptom relief with relief from burning. She has no other compalints today) Last known Well Code/Unknown Code: Unknown - ROS CONST: no problems GI/: problems urinating. denies: vomiting, nausea - PAST HX Past History: other (frequent UTI's ) Immunizations: UTD Allergies/Adverse Reactions: Allergies Allergy/AdvReac Type Severity Reaction Status Date / Time Penicillins Allergy Verified 10/30/18 05:49 Sulfa (Sulfonamide Allergy Verified 10/30/18 05:49 Antibiotics) Tetanus Vaccines and Toxoid Allergy Verified 10/30/18 05:49 [Tetanus Vaccines & Toxoid] Home Medications: Ambulatory Orders Medication Instructions Recorded Oxcarbazepine [Trileptal] 300 mg PO BID 04/28/18 - SOCIAL HX Smoking History: cigarettes Alcohol Use: none Drug Use: none - FAMILY HX Family History: No - VITAL SIGNS Vital Signs: Vital Signs Temp Pulse Resp BP Pulse Ox 120/74 10/30/18 06:26 - REVIEWED ASSESSMENTS Nursing Assessment Reviewed: Yes Vitals Reviewed: Yes Progress - Progress Progress: assessment was at 1455 DG ED Results Lab/Radiology - Lab Results Lab Results: Lab Results 02/26/19 15:01 Urine Color [place] (YELLOW) Urine Appearance Clear (CLEAR) Urine pH 5.5 (5.0 - 8.0) Ur Specific [place] 1.020 (1.010-1.030) Urine Protein Negative mg/dL mg/dL (NEGATIVE) Urine Ketones Negative mg/dL mg/dL (NEGATIVE) Urine Occult Blood 1+ H (NEGATIVE) Urine Nitrite Positive H (NEGATIVE) Urine Bilirubin Negative (NEGATIVE) Urine Urobilinogen 0.2 Eu Eu (0.2-1.0) Ur Leukocyte Esterase 1+ H (NEGATIVE) Urine Glucose Trace mg/dL mg/dL (NEGATIVE) - Orders Orders: ED Orders Category Date Time Status UA MACRO DIP ONLY Routine Lab 02/26/19 15:01 Completed URINE CULTURE Routine Lab 02/26/19 15:01 Received General Adult Physical Exam - PHYSICAL EXAM GENERAL APPEARANCE: no distress EENT: eye inspection normal, no signs of dehydration NECK: normal inspection RESPIRATORY: no resp distress, chest non-tender CVS: reg rate & rhythm, heart sounds normal, equal pulses ABDOMEN: soft, tenderness (Bladder ) BACK: normal inspection, no CVA tenderness SKIN: warm/dry, normal color EXTREMITIES: non-tender, normal range of motion NEURO: oriented X3 Discharge Clincal Impression: UTI (urinary tract infection) Qualifiers: Urinary tract infection type: site unspecified Hematuria presence: without hematuria Qualified Code(s): N39.0 - Urinary tract infection, site not specified Referrals: Christine Ramirez MD [Primary Care Provider] - 2 Days Condition: Stable Disposition: 01 HOME, SELF-CARE Decision to Admit: NO Date of Decison to Admit: 02/26/19 Decision Time: 15:20
== END 2019-02-26 15:30 | disposition home or self-care (01) ==
LOC: ED 15:28
DX: N39.0 Urinary tract infection, site not specified (principal)
CPT/HCPCS: 81002; 87086; 99281; 99282

== ENCOUNTER 2019-03-03 17:30 | Emergency (ER) | payer SELFPAY ==
--- NOTE | 2019-03-03 17:38 | ED Physician Documentation ---
Lower Extremity Problem - HPI Stated Complaint: left foot pain Chief Complaint: Lower Extremity Problem Additional Information: Patient presents to ED with left foot pain after tripping while walking home from the store last night. She was able to walk home. Today the pain has intensified making it impossible to walk on the foot. Location of Injury: L foot Timing: worse Duration: constant Recent Injury: Yes Where: other (walking home from store) Severity: mild Quality: pain Exacerbated By: walking Relieved By: rest Associated Symptoms: denies: chest pain, shortness of breath - ROS CONST: no problems MS/SKIN/LYMPH: none CVS/RESP: none GI/: none EYES/ENT: none NERUO/PSYCH: denies: headache - PAST HX Past History: none PE Risk Factors: other Other History: other (depression/anxiety) Surgeries/Procedures: hysterectomy Allergies/Adverse Reactions: Allergies Allergy/AdvReac Type Severity Reaction Status Date / Time Penicillins Allergy Verified 03/03/19 17:51 Sulfa (Sulfonamide Allergy Verified 03/03/19 17:51 Antibiotics) Tetanus Vaccines and Toxoid Allergy Verified 03/03/19 17:51 [Tetanus Vaccines & Toxoid] Home Medications: Ambulatory Orders Medication Instructions Recorded Oxcarbazepine [Trileptal] 300 mg PO BID 04/28/18 - SOCIAL HX Smoking History: non-smoker Alcohol Use: none Drug Use: none - FAMILY HX Family History: none - VITAL SIGNS Vital Signs: Vital Signs Temp Pulse Resp BP Pulse Ox 97.5 F L 76 21 134/85 97 03/03/19 17:42 03/03/19 17:42 03/03/19 17:42 03/03/19 17:42 03/03/19 17:42 - REVIEWED ASSESSMENTS Nursing Assessment Reviewed: Yes Vitals Reviewed: Yes ED Results Lab/Radiology - Radiology Radiology Impressions: Report Submission Date: Mar 03, 2019 6:02:30 PM CDT Patient Study Name: RICKEY SOLIS Date: Mar 03, 2019 5:44:38 PM CDT Modality Type: DX Gender: F Description: FOOT 3 VIEWS OR MORE : 78 Institution: [facility] Physician: TESS ARANGO Left foot 3 views Clinical history: Trauma No visible fracture, dislocation or bone destruction. No soft tissue calcifi cations. Impression: Normal left foot. Electronically signed on Mar 03, 2019 6:02:30 PM CDT by: Temo Huerta Orders: ED Orders Category Date Time Status FOOT 3V OR MORE VIEWS [FOOT 3 VIEWS OR MORE] [RAD] Stat Exams 03/03/19 Completed Lower Extremity Problem - EXAM General Appearance: no distress Hips: bilateral hip: non-tender, normal inspection, normal range of motion, no evidence of injury Legs: bilateral: non-tender, normal inspection, normal range of motion, no evidence of injury Knees: bilateral: non-tender, normal inspection, normal range of motion, no evidence of injury Ankle: bilateral: non-tender, normal inspection, normal range of motion, no evidence of injury Foot: left foot: normal inspection, normal range of motion, no evidence of injury, bone tenderness Neuro/Tendon: normal sensation, normal motor functions EENT: eye inspection normal, ENT inspection normal, CHELA RESPIRATORY: no resp distress, chest non-tender, breath sounds normal CVS: reg rate & rhythm, heart sounds normal, equal pulses JOINT: joints nml, nml ROM VASCULAR: no vascular compromise, pulses full/equal NEURO/PSYCH: oriented X3, CN's nml as tested, motor nml, sensation nml, other (pressured speech) SKIN: warm/dry, normal color BACK: normal inspection, no CVA tenderness Discharge Clincal Impression: Left foot pain Referrals: Primary Doctor,No [Primary Care Provider] - 2 Days Additional Instructions: 1. Tylenol and/or Ibuprofen as needed for pain 2. Apply ice to affected area as needed for comfort 3. Keep foot elevated when at rest to reduce pain/swelling 4. Follow up with PCP within 1 week 5. Return to ER for new or worsening symptoms Condition: Stable Disposition: 01 HOME, SELF-CARE Decision to Admit: NO Date of Decison to Admit: 03/03/19 Decision Time: 18:16
[2019-03-03 17:49] VITALS: BP 134/85
--- NOTE | 2019-03-03 18:03 | Diagnostic Imaging Report ---
TESS ARANGO [facility] [address] [facility].[address] [address] Report Submission Date: Mar 03, 2019 6:02:30 PM CDT Patient Study Name: RICKEY SOLIS Date: Mar 03, 2019 5:44:38 PM CDT Modality Type: DX Gender: F Description: FOOT 3 VIEWS OR MORE : 78 Institution: [facility] Physician: TESS ARANGO Left foot 3 views Clinical history: Trauma No visible fracture, dislocation or bone destruction. No soft tissue calcifications. Impression: Normal left foot. Electronically signed on Mar 03, 2019 6:02:30 PM CDT by: Temo STAUFFER
== END 2019-03-03 18:25 | disposition home or self-care (01) ==
LOC: ED 17:30
DX: M79.672 Pain in left foot (principal)
CPT/HCPCS: 73630; 99283; 99284